=== PATIENT | male | born 1970 | race Caucasian/White ===

== ENCOUNTER → 2017-11-01 | Outpatient (REF) | payer OTHER ==
[2017-11-01 13:15] LABS: HEMATOCRIT 42.4 % (42.0-52.0); HEMOGLOBIN 14.5 g/dl (14.0-18.0); MEAN CORPUSCULAR HEMOGLOBIN 30.2 pg (27.0-33.0); MEAN CORPUSCULAR HGB CONC 34.2 g/dl (32.0-36.5); MEAN CORPUSCULAR VOLUME 88.3 fl (80.0-96.0); PLATELET COUNT, AUTOMATED 255 10^3/uL (150-450); RED CELL DISTRIBUTION WIDTH 12.1 % (11.5-14.5); WHITE BLOOD COUNT 5.3 10^3/uL (4.0-10.0)
[2017-11-01 14:09] LABS: ALBUMIN 3.5 GM/DL (3.2-5.2); ALBUMIN/GLOBULIN RATIO 1.09 (1.00-1.93); ALKALINE PHOSPHATASE 108 U/L (45-117); ALT/SGPT 34 U/L (12-78); ANION GAP 7 MEQ/L (8-16); AST/SGOT 19 U/L (7-37); BILIRUBIN,TOTAL 0.5 MG/DL (0.2-1.0); BLOOD UREA NITROGEN 13 MG/DL (7-18); CALCIUM LEVEL 8.7 MG/DL (8.5-10.1); CARBON DIOXIDE LEVEL 29 MEQ/L (21-32); CHLORIDE LEVEL 105 MEQ/L (98-107); CHOLESTEROL LEVEL 199 MG/DL (<200); CHOLESTEROL RISK RATIO 5.102 (<5); CREATININE FOR GFR 0.85 MG/DL (0.70-1.30); GLOMERULAR FILTRATION RATE > 60.0 (>60); GLUCOSE, FASTING 91 MG/DL (70-100); HDL CHOLESTEROL 39 MG/DL (>40); LDL CHOLESTEROL 139.6 MG/DL (<100); NON-HDL-C 160 MG/DL; POTASSIUM SERUM 4.2 MEQ/L (3.5-5.1); SODIUM LEVEL 141 MEQ/L (136-145); TOTAL PROTEIN 6.7 GM/DL (6.4-8.2); TRIGLYCERIDES LEVEL 102 MG/DL (<150)
== END ==
LOC: M SFHCCLAY 07:38
DX: K21.9 Gastro-esophageal reflux disease without esophagitis (principal); E78.5 Hyperlipidemia, unspecified; Z13.21 Encounter for screening for nutritional disorder

== ENCOUNTER → 2017-12-20 | Outpatient (CLI) | payer MEDICAID, OTHER | LOC: M CLY 15:59 | DX: R06.89 Other abnormalities of breathing (principal) | CPT/HCPCS: 71046 ==

== ENCOUNTER → 2019-12-16 | Outpatient (CLI) | payer OTHER ==
--- NOTE | 2019-12-17 02:31 | REP ---
Clinical: Lumbago and left-sided sciatica. Technique: AP, lateral, bilateral oblique, and coned-down views of the lumbosacral spine. Findings: Alignment and lordosis maintained. No acute fracture / compression injury or subluxation. Endplate sclerosis with minimal disc space narrowing, marginal spurring, and hypertrophic facet changes noted at L5-S1. Mild endplate sclerosis without significant disc space narrowing noted at L4-5. Remainder of the examination is relatively age-appropriate. Impression: Mild degenerative spondylosis involving the lower lumbar spine. Electronically Signed by Paul Dominguez MD 12/17/2019 02:22 A
--- NOTE | 2019-12-17 02:32 | REP ---
Clinical: Left hip pain. Technique: AP and frog lateral views of the left hip. Findings: Mildly increased sclerosis to the acetabular roof with associated joint space narrowing and subtle marginal acetabular spurring is appreciated. Proximal femur appears normal. No periarticular calcifications or loose bodies. Impression: Mild degenerative changes. Electronically Signed by Paul Dominguez MD 12/17/2019 02:24 A
== END ==
LOC: M CLY 14:15
PROVIDERS: ATTEND Physician Assistant
DX: M54.42 Lumbago with sciatica, left side (principal); G89.29 Other chronic pain; M25.552 Pain in left hip; M47.816 Spondylosis without myelopathy or radiculopathy, lumbar region; M16.12 Unilateral primary osteoarthritis, left hip

== ENCOUNTER → 2022-02-24 | Outpatient (REF) | payer OTHER ==
[2022-02-24 16:04] LABS: BASO % 0.5 % (0.0-1.0); EOS # 0.2 10^3/uL (0.0-0.5); EOS % 2.8 % (0.0-3.0); HEMATOCRIT 39.8 % (42.0-52.0); LYMPH # 1.6 10^3/uL (1.5-5.0); MEAN CORPUSCULAR HEMOGLOBIN 29.2 pg (27.0-33.0); MEAN CORPUSCULAR HGB CONC 32.7 g/dl (32.0-36.5); MEAN CORPUSCULAR VOLUME 89.4 fl (80.0-96.0); MONO # 0.5 10^3/uL (0.0-0.8); MONO % 8.2 % (2.0-8.0); NEUTROPHILS # 3.7 10^3/uL (1.5-8.5); NEUTROPHILS % 62.3 % (36.0-66.0); PLATELET COUNT, AUTOMATED 271 10^3/uL (150-450); RED BLOOD COUNT 4.45 10^6/uL (4.30-6.10)
[2022-02-24 16:31] LABS: ALBUMIN 3.6 GM/DL (3.2-5.2); ALT/SGPT 24 U/L (12-78); BILIRUBIN,TOTAL 1.1 MG/DL (0.2-1.0); BLOOD UREA NITROGEN 16 MG/DL (7-18); CALCIUM LEVEL 9.4 MG/DL (8.5-10.1); CARBON DIOXIDE LEVEL 32 MEQ/L (21-32); CHLORIDE LEVEL 104 MEQ/L (98-107); CHOLESTEROL LEVEL 200 MG/DL (<200); CHOLESTEROL RISK RATIO 5.263 (<5); CREATININE FOR GFR 1.06 MG/DL (0.70-1.30); GLOMERULAR FILTRATION RATE > 60.0 (>56); GLUCOSE, FASTING 91 MG/DL (70-100); HDL CHOLESTEROL 38 MG/DL (>40); LDL CHOLESTEROL 143 MG/DL (<100); NON-HDL-C 162 MG/DL; POTASSIUM SERUM 4.3 MEQ/L (3.5-5.1); SODIUM LEVEL 137 MEQ/L (136-145); TOTAL PROTEIN 6.4 GM/DL (6.4-8.2); TRIGLYCERIDES LEVEL 95 MG/DL (<150)
[2022-02-25 11:31] LABS: TOTAL 25(OH) VITAMIN D 36.1 NG/ML (30.0-100.0); VITAMIN B12 LEVEL 318 PG/ML
[2022-02-25 11:32] LABS: FOLATE 8.3 NG/ML
== END ==
LOC: M SFHCCAPE 07:15
PROVIDERS: ATTEND Physician Assistant
DX: I10 Essential (primary) hypertension (principal); Z12.5 Encounter for screening for malignant neoplasm of prostate; E55.9 Vitamin D deficiency, unspecified; F10.10 Alcohol abuse, uncomplicated
CPT/HCPCS: 80053; 80061; 82306; 82607; 82746; 84443; 85025; G0103

== ENCOUNTER → 2022-08-04 | Outpatient (CLI) | payer OTHER ==
[~2022-08-04] MED LIST: DICL50TAB PO; LISI20TA33 PO; ROSU5TAB5 PO
== END ==
LOC: M LABSMTC 10:04
PROVIDERS: ATTEND Anesthesiology
DX: Z01.812 Encounter for preprocedural laboratory examination (principal); Z11.52 Encounter for screening for COVID-19

== ENCOUNTER → 2022-08-04 | Outpatient (CLI) | payer OTHER ==
[2022-08-04 09:54] LABS: HEMOGLOBIN 13.6 g/dl (13.5-17.5); MEAN CORPUSCULAR HEMOGLOBIN 28.7 pg (27.0-33.0); MEAN CORPUSCULAR HGB CONC 32.4 g/dl (32.0-36.5); MEAN CORPUSCULAR VOLUME 88.6 fl (80.0-96.0); PLATELET COUNT, AUTOMATED 278 10^3/uL (150-450); RED BLOOD COUNT 4.74 10^6/uL (4.30-6.10); WHITE BLOOD COUNT 5.9 10^3/uL (4.0-10.0)
[2022-08-04 10:55] LABS: BLOOD UREA NITROGEN 19 MG/DL (9-23); CALCIUM LEVEL 9.2 MG/DL (8.5-10.1); CARBON DIOXIDE LEVEL 31 MMOL/L (20-31); CHLORIDE LEVEL 104 MMOL/L (98-107); GLOMERULAR FILTRATION RATE > 60.0 (>56); GLUCOSE, FASTING 92 MG/DL (60-100); POTASSIUM SERUM 4.3 MMOL/L (3.5-5.1); SODIUM LEVEL 141 MMOL/L (136-145)
== END ==
LOC: M WUC 08:25
PROVIDERS: ATTEND Family Medicine
DX: Z01.818 Encounter for other preprocedural examination (principal); I10 Essential (primary) hypertension

== ENCOUNTER 2022-08-09 06:23 | Day surgery (SDC) | payer OTHER ==
[~2022-08-09] VITALS: Ht 175.3 cm; Wt 85.2 kg
[~2022-08-09 06:23] MED LIST changes: +ceFAZolin SOD 2 GM in IV 1 EA IV ONE
[2022-08-09] MEDS ORDERED: LR 1,000 ML IV SCH (06:55)
[2022-08-09] MEDS ORDERED: LIDOCAINE 2% 100MG/5ML SDV (FOR ANES.) As Ordered ONE ×2 (07:18→08:27)
[2022-08-09] MEDS ORDERED: propofoL 200 MG/20 ML VIAL As Ordered ONE ×2 (07:18→08:27)
[2022-08-09] MEDS ORDERED: MIDAZOLAM INJ 2MG/2ML VIAL (J2250 PER 1MG) As Ordered ONE ×2 (07:19→08:27)
[2022-08-09] MEDS ORDERED: fentaNYL 100 MCG/2 ML INJECTION As Ordered ONE ×2 (07:19→08:28)
[2022-08-09] MEDS ORDERED: LIDOCAINE 2% W/EPINEPHRINE 20ML VIAL **PRES FREE As Ordered ONE (07:22)
[2022-08-09] MEDS ORDERED: POLYSPORIN OPHTH OINT 3.5 GM As Ordered ONE (07:23)
[2022-08-09] MEDS ORDERED: POVIDONE-IODINE 5% OPHTH PREP SOL 30ML As Ordered ONE (07:23)
[2022-08-09] MEDS ORDERED: LIDOCAINE W/EPINEPHRINE 1% 20ML VIAL As Ordered ONE (07:23)
[2022-08-09] MEDS ORDERED: ONDANSETRON 4MG 2ML VIAL As Ordered ONE (07:54)
[2022-08-09] MEDS ORDERED: MUPIROCIN 2% OINT 22 GM TUBE As Ordered ONE (08:11)
[2022-08-09] MEDS ORDERED: BACITRACIN OINTMENT 30GM TUBE As Ordered ONE (08:13)
[2022-08-09 08:22] VITALS: BP 136/83
[2022-08-09] MEDS ORDERED: ROCURONIUM BROMIDE 50 MG/5 ML VIAL As Ordered ONE (08:27)
== END 2022-08-09 08:50 | disposition home or self-care (01) ==
LOC: M SDC 06:23
PROVIDERS: ATTEND Plastic Surgery Surgery of the Hand
DX: L72.0 Epidermal cyst (principal); I10 Essential (primary) hypertension; E78.5 Hyperlipidemia, unspecified; Z79.899 Other long term (current) drug therapy
CPT/HCPCS: 11402; 88305; J0690; J2250; J2405; J3010

== ENCOUNTER → 2022-08-31 | Outpatient (REF) | payer OTHER ==
[~2022-08-31] MED LIST changes: -ceFAZolin SOD 2 GM in IV 1 EA IV ONE
[2022-08-31 18:03] LABS: CHOLESTEROL RISK RATIO 5.28 (<5); LDL CHOLESTEROL 119.4 MG/DL (<100)
[2022-08-31 18:05] LABS: TOTAL 25(OH) VITAMIN D 23.3 NG/ML (20.0-100.0)
== END ==
LOC: M SFHCCAPE 07:13
PROVIDERS: ATTEND Physician Assistant
DX: E55.9 Vitamin D deficiency, unspecified (principal); E78.5 Hyperlipidemia, unspecified

== ENCOUNTER → 2022-10-25 | Outpatient (CLI) | payer OTHER | LOC: M SOG 14:36 | PROVIDERS: ATTEND Orthopaedic Surgery Hand Surgery | DX: M25.541 Pain in joints of right hand (principal); M25.542 Pain in joints of left hand; M19.041 Primary osteoarthritis, right hand; M19.042 Primary osteoarthritis, left hand ==